=== PATIENT | female | born 1940 | race Caucasian/White ===

== ENCOUNTER 2020-11-19 08:34 | Outpatient (CLI) | payer MEDICARE, SELFPAY ==
--- NOTE | ~2020-11-19 | XR_ITS ---
EXAMINATION: XR shoulder LT min 2V DATE: 11/19/2020 08:52 INDICATION: Left shoulder pain. TECHNIQUE: 4 views of left shoulder were obtained. COMPARISON: None. FINDINGS: Bone alignment is normal. No fracture. There is mild osteoarthritis of glenohumeral joint a nd severe osteoarthritis of acromioclavicular joint. IMPRESSION: 1. Polyarticular osteoarthritis. Reviewed, dictated and finalized at location A. [employer]ORY WORKER
== END 2020-11-19 08:35 | disposition home or self-care (01) ==
PROVIDERS: PCP Family Medicine; Visit Provider Physician Assistant
DX: M25.512 Pain in left shoulder (principal); M19.012 Primary osteoarthritis, left shoulder
CPT/HCPCS: 73030

== ENCOUNTER 2022-07-10 10:04 | Emergency (ER) | payer MEDICARE, SELFPAY ==
[2022-07-10] VITALS (24 sets, daily range): BP systolic 152–177; BP diastolic 63–88; PULSE 18–66; RESP 16–18; TEMP 36.1–36.5; O2SAT 96–100
--- NOTE | ~2022-07-10 | CT_ITS ---
EXAMINATION: CT brain wo con INDICATION: Headache and blurry vision COMPARISON: 10/02/2010 TECHNIQUE: Standard unenhanced head CT. The dose-length product (DLP) was 529.67 mGy-cm. The mA was a djusted according to patient size. Iterative reconstruction technique was employed. FINDINGS: There is no acute intraparenchymal hemorrhage. No evidence of mass lesion. No evidence of a cute infarction. There is mild periventricular and subcortical hypodensity probably related to small vessel ischemic disease. There is mild prominence of the sulci and ventricles related to cerebral atr ophy. Intracranial calcified cerebral atherosclerosis is noted. There are no extra-axial collections. There is no mass effect or midline shift. Changes in the globes are likely from ocular lens surgery. There is mild mucosal thickening of the paranasal sinuses. IMPRESSION: 1. No acute intracranial abnormality. 2. Age related findings. Reviewed, dictated and finalized at location B.
--- NOTE | 2022-07-10 10:38 | PC.NURSE ---
Pt off floor to radiology.
--- NOTE | 2022-07-10 11:13 | ED.HA ---
HPI - Headache General Chief Complaint: Headache Stated Complaint: headache for two weeks Time Seen by Provider: 07/10/22 11:10 History of Present Illness HPI Narrative: Patient is an 82-year-old female with a history of diabetes, hypertension, hyperlipidemia presenting with a headache. Patient states that she has had a constant left-sided headache for the last 2 to 3 weeks. States that she had her eyes checked shortly before the headache began and was very bothered by the bright lights use during the exam. States she thinks that the headache started shortly after that. She has been using Tylenol with temporary improvement in her pain. She endorses mild bilateral vision blurriness but no vision loss or unilateral vision symptoms. She denies neck or back pain. No recent trauma. No numbness or weakness. No speech or gait difficulties. States that sometimes an area over her left parietal region feels tender. She denies fevers, chest pain, shortness of breath, cough, abdominal pain, nausea or vomiting, diarrhea, dysuria, leg swelling. Related Data Home Medications Medication Instructions Recorded Confirmed flash glucose scanning reader 05/29/21 06/16/22 ([employer] Roro 2 [place]) flash glucose sensor (FreeStyle 05/29/21 06/16/22 Roro 2 Sensor kit) dulaglutide 0.75 mg/0.5 mL 0.75 mg subcut WEEKLY 01/08/22 06/16/22 subcutaneous pen injector (Trulicity) insulin aspart U-100 100 unit/mL 6 unit subcut DAILY 01/08/22 06/16/22 (3 mL) subcutaneous pen (Novolog Flexpen U-100 Insulin aspart) insulin detemir U-100 100 unit/mL 7 unit subcut QHS 01/08/22 06/16/22 (3 mL) subcutaneous pen (Levemir FlexTouch U-100 Insulin) Allergies Allergy/AdvReac Type Severity Reaction Status Date / Time No Known Allergies Allergy Unknown Verified 07/10/22 10:48 Review of Systems Review of Systems: All systems reviewed & are unremarkable except as noted in HPI and below PMFSH Past Medical History Medical History Acromioclavicular joint arthritis Carotid artery dissection Claustrophobia Dry eye Glaucoma High cholesterol History of vaginal delivery Hyperlipidemia Hypertension Light-headedness Poison gianna dermatitis 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 Substance use: never Substance use type: does not use Gender identity (if verbalized by the patient): Female Spiritual care concerns: Yes Agree to blood products: Yes Exam Narrative: GENERAL: Well-appearing, well-nourished, and in no acute distress. HEAD: Normocephalic, atraumatic. EYES: PERRLA and EOMI. ENT: Nares clear, no rhinorrhea or epistaxis. Mucous membranes moist. NECK: Supple. CHEST: Clear to auscultation. No respiratory distress. HEART: Regular rate and rhythm. No murmur heard. Normal peripheral pulses. ABDOMEN: Soft, nontender, nondistended, normal active bowel sounds. EXTREMITIES: Normal range of motion. No edema. SKIN: Warm, dry, no rash. NEURO: No focal deficits. Alert and oriented x3. Cranial nerves intact. PSYCH: Normal mood and affect. Course Vital Signs Vital signs: Vital Signs Temperature 97.7 F 07/10/22 10:10 Pulse Rate 18 L 07/10/22 10:10
[2022-07-10] MEDS: KETOROLAC 15 MG/ML VIAL (*BKC) IV PUSH (11:48)
[2022-07-10 11:56] LABS: Basophils Percent Auto 0.2 % (0.2-1.2); Eosinophils Absolute Auto 0.2 K/mm3 (0-0.3); Eosinophils Percent Auto 1.7 % (0-4.4); Hemoglobin 13.3 g/dL (12.0-15.0); Immature Granulocyte Absolute 0.04 K/mm3 (0.00-0.031); Immature Granulocyte Percent A 0.5 % (0-0.5); Lymphocytes Absolute Auto 2.67 K/mm3 (0.9-3.2); Lymphocytes Percent Auto 30.2 % (18.3-44.2); Mean Corpuscular HGB Conc 34.1 g/dl (32-36); Mean Corpuscular Hemoglobin 30.6 pg (26-34); Mean Corpuscular Volume 89.7 fl (80-100); Mean Platelet Volume 10.4 fl (7.4-10.4); Monocytes Absolute Auto 0.8 K/mm3 (0.1-0.6); Monocytes Percent Auto 8.8 % (2.6-8.5); Neutrophils Absolute Auto 5.2 K/mm3 (1.3-6.7); Neutrophils Percent Auto 58.6 % (45.5-73.1); Platelet Count Result 225 k/mm3 (150-375); Red Blood Count 4.35 M/mm3 (4.2-5.4); Red Cell Distribution Width 12.8 % (11.5-14.5); White Blood Count 8.9 K/mm3 (4.5-10.0)
[2022-07-10 12:11] LABS: Alanine Aminotransferase 25 U/L (6-35); Albumin Level 4.6 g/dL (3.5-5.1); Alkaline Phosphatase 52 U/L (38-126); Anion Gap 11 mmol/L (8-16); Aspartate Amino Transferase 25 U/L (14-36); Bilirubin,Total 0.4 mg/dL (0.2-1.3); Blood Urea Nitrogen 19 mg/dL (7-17); Carbon Dioxide 29 mmol/L (22-30); Chloride 95 mmol/L (98-107); Estimated CRCL calculation 47 ml/min; Estimated Glomerular Filt Rate > 60; Glucose 117 mg/dL (65-110); Potassium 4.5 mmol/L (3.4-5.0); Sodium 135 mmol/L (137-145)
== END 2022-07-10 13:11 | disposition home or self-care (01) ==
PROVIDERS: Emergency Provider Emergency Medicine; PCP Family Medicine
DX: R51.9 Headache, unspecified (principal); E11.43 Type 2 diabetes mellitus with diabetic autonomic (poly)neuropathy; E78.00 Pure hypercholesterolemia, unspecified; E78.5 Hyperlipidemia, unspecified; I10 Essential (primary) hypertension; H40.9 Unspecified glaucoma; M19.019 Primary osteoarthritis, unspecified shoulder; Z79.4 Long term (current) use of insulin; Z79.84 Long term (current) use of oral hypoglycemic drugs
CPT/HCPCS: 36415; 70450; 80053; 85025; 96374; 99284; J1885

== ENCOUNTER 2024-11-16 12:47 | Outpatient (CLI) | payer MEDICARE, SELFPAY ==
--- NOTE | ~2024-11-16 | DEXA_ITS ---
Bone Density Report Name: CLARE CARO Age: 84 Sex: Female Ethnicity: White Date of : 1940 Indication: postmenopausal; screening for osteoporosis; height loss; hysterectomy; Referring Provider: Chaya Dowd Study: Bone densitometry was performed. Exam Date: November 16, 2024 Accession number: [id number] Bone Density: Region BMD T-score Z-score Classification AP Spine(L2, L3, L4) 1.118 0.4 3.2 Normal Femoral Neck (Left) 0.674 -1.6 0.9 Osteopenia Total Hip (Left) 0.784 -1.3 1.0 Osteopenia Femoral Neck (Right) 0.544 -2.7 -0.3 Osteoporosis Total Hip (Right) 0.782 -1.3 0.9 Osteopenia Femoral Neck Mean 0.609 -2.2 0.3 Osteopenia Total Hip Mean 0.783 -1.3 0.9 Osteopenia World Health Organization criteria for BMD impression classify patients as: Normal (T-score at or above -1.0), Osteopenia (T-score between -1.0 and -2.5), or Osteoporosis (T-score at or below -2.5). 10-year Fracture Risk: FRAX not reported because: Some T-score for Spine Total or Hip Total or Femoral Neck at or below -2.5 Clinical Information Provided by Patient: Has used the following medications: Vitamin D, Calcium Has the following medical conditions: Hysterectomy Patient maximum height was 64.5 Menopause Age: 56 No regular weight bearing exercise Does not regularly consume dairy products Onset of menses at age 15 Number of children 0 Impression: The patient has osteoporosis, based on the Right Femoral Neck T-score. Discussion: INCREASED RISK OF FRACTURE. BONE DENSITY IS UNDESIRABLY LOW AT ONE OR MORE SKELETAL SITES, CONSISTENT WITH POSTMENOPAUSAL OSTEOPOROSIS. This patient's lowest T-score meets the World Health Organization's (WHO) criteria for osteoporosis at one or more sites (T-score -2.5 or below). In untreated patients, the risk of osteoporotic fracture increases approximately two-fold for each 1.0 SD decrease in T-score. Low bone density is not the only risk factor for fracture; also consider factors such as patient's age, frailty or poor health, risk of falling, risk of injury, previous osteoporotic fracture, family history of osteoporosis, cigarette smoking, low body weight, etc. Not everyone with low bone mineral density has osteoporosis; osteomalacia and other metabolic bone disorders should also be considered. Patients who have osteoporosis should be evaluated for specific diseases and conditions (secondary causes) that may cause or contribute to bone loss. The [place] Association of Clinical Endocrinologists (AACE) and National Osteoporosis Foundation (NOF) recommend pharmacologic intervention for all postmenopausal women whose T-score is in this range. The patient should follow a healthful lifestyle (good nutrition with adequate calcium and vitamin D, and appropriate weight-bearing exercise). Follow-Up: Consider a repeat BMD and Vertebral Fracture Assessment (VFA) exam in 2 years or sooner if medically necessary, to reassess this patient's status. Reported by: RAQUEL on 11/16/2024 1:11:00 PM. Reviewed, dictated and finalized at location A.
--- OUTSIDE RECORDS SUMMARY | 2024-11-17 04:59 | XMS_ITS | Encounter Summary ---
Author Organization [facility] Address [address] [place] [id number] Care Team Providers Care Marketing Summer Intern Name Role Phone Gino Comer Primary Care Provider [phone] Reason for Visit * Reason Comments Diabetes Type 2 Encounter Details Date Type Department Care Team (Latest Contact Info) Description 11/15/2024 9:30 AM BRIQUETTER OPERATOR Office Visit [facility] Diabetes and Endocrinology [address] [place] [phone] [place] [address] [facility] [address], [place] [address] Type 2 diabetes mellitus with hyperglycemia, with long-term current use of insulin (HCC) (Primary Dx); Hypertension associated with type 2 diabetes mellitus (HCC); Mixed diabetic hyperlipidemia associated with type 2 diabetes mellitus (HCC) Social History Tobacco Use Types Packs/Day Years Used Date Smoking Tobacco: Never Smokeless Tobacco: Never PHQ-2 Answer Date Recorded PHQ-2 Total Score (If total score is 3 or more points, staff should administer the PHQ-9) 0 01/06/2022 Comments Unknown Sex and Gender Information Value Date Recorded Sex Assigned at Not on file Legal Sex Female 11:43 PM BRIQUETTER OPERATOR Gender Identity Not on file Sexual Orientation Not on file documented as of this encounter Last Filed Vital Signs Vital Sign Reading Time Taken Comments Blood Pressure 124/80 11/15/2024 9:28 AM BRIQUETTER OPERATOR Pulse 73 11/15/2024 9:28 AM BRIQUETTER OPERATOR Temperature - - Respiratory Rate 16 11/15/2024 9:28 AM BRIQUETTER OPERATOR Oxygen Saturation - - Inhaled Oxygen Concentration - - Weight 67.1 kg (148 lb) 11/15/2024 9:28 AM BRIQUETTER OPERATOR Height 162.6 cm (5' 4.02 ) 11/15/2024 9:28 AM CS T Body Mass Index 25.39 11/15/2024 9:28 AM BRIQUETTER OPERATOR documented in this encounter Patient Instructions * Patient Instructions* Shelley Hogan NP - 11/15/2024 9:30 AM BRIQUETTER OPERATOR Great job! No changes. Current medications: Metformin XR 1000 mg twice daily Trulicity 3 mg weekly (PAP) Tresiba 7 units at bedtime Novolog 6 units before lunch UETTER OPERATOR documented in this encounter Progress Notes * Shelley Hogan NP - 11/15/2024 9:30 AM CST Images from the original note were not included. [facility] Diabetes Follow Up Visit Subjective/Objective Patient ID: Shital Arredondo is a 84 y.o. female who comes in today to our Endocrinology clinicto follow up for DM management. Chief Complaint Diabetes Type 2 HPI Diabetes complications and/or comorbidity include: T2DM dx'd 2001, HTN, HLD Current medications: Metformin XR 1000 mg twice daily Trulicity 3 mg weekly (PAP) Tresiba 7 units at bedtime Novolog 6 units before lunch Dietary habits: 3 meals/day. Very little snacking. Exercise routine: starting walking program again. Golf will begin again in January. More sedentary during winter. Home CBG monitoring results: Freestyle Lianna 2. No hypoglycemia. 07/19/24 Freestyle lianna download comparison: ave BG= 141, 1% very high, 14% high, 85% TIR, 0% low. BG Average: 134 mg/dl with: 1% very high 6% high 93% in target range 0% low. Overnight pattern: flat, in range Postprandial pattern: in range, mild postprandial rise Neuropathy: bilat pedal. Last foot exam: 07/19/24 Statin therapy: Yes. Simvastatin 10mg. Last lipid panel: 12/22/23 LDL=76, RS=778. Nephropathy: On ISSA-I / ARB???s: Yes. Irbesartan 75 mg daily. Last MA: 12/22/23 (18). Last creat/GFR: 01/12/24. GFR=81, CR=0.74 Retinopathy: Date of last eye examination: 03/31/24 NPDR wo DME OD, no DMR OS Dr Fischer ([facility]). Scheduled 03/2025. Wt Readings from Last 3 Encounters: 11/15/24 67.1 kg (148 lb) 07/19/24 67.6 kg (149 lb) 12/23/23 67.6 kg (149 lb) Labs: Last A1c: Recent Labs Lab Units 11/15/24 0931 HEMOGLOBIN A1C POC % 6.7 Component Latest Ref Rng 06/22/2023 12/23/2023 07/19/2024 Hgb A1C, POC 4.0 - 5.6 % 7.1 7.2 7.1 Lab Results Component Value Date ALBCREATRATU <18 12/23/2023 Lipid profile within the last year: Lab Results Component Value Date CHOL 161 12/23/2023 Lab Results Component Value Date TRIG 107 12/23/2023 Lab Results Component Value Date HDL 64 12/23/2023 Lab Results Component Value Date LDLCALC 76 12/23/2023 Vitals: 11/15/24 0928 BP: 124/80 BP Location: Left arm Patient Position: Sitting Pulse: 73 Resp: 16 Weight: 67.1 kg (148 lb) Height: 162.6 cm (5' 4.02 ) Physical Exam Vitals and nursing note reviewed. Constitutional: Appearance: Normal appearance. She is well-developed and normal weight. HENT: Head: Normocephalic. Right Ear: Hearing normal. Left Ear: Hearing normal. Eyes: General: Lids are normal. Gaze aligned appropriately. Neck: Thyroid: No thyromegaly. Trachea: Trachea and phonation normal. No tracheal deviation. Cardiovascular: Rate and Rhythm: Normal rate and regular rhythm. No extrasystoles are present. Heart sounds: Normal heart sounds, S1 normal and S2 normal. No murmur heard. Pulmonary: Effort: Pulmonary effort is normal. Breath sounds: Normal breath sounds and air entry. Skin: General: Skin is warm and dry. Neurological: Mental Status: She is alert and oriented to person, place, and time. Mental status is at baseline. Psychiatric: Mood and Affect: Mood normal. Behavior: Behavior is cooperative. Assessment/Plan Diagnoses and all orders for this visit: Type 2 diabetes mellitus with hyperglycemia, with long-term current use of insulin (HCC) (Primary) Assessment & Plan: Chronic problem, well controlled on current regimen. No hypoglycemic events. A1c 6.7% today. Current medications: Metformin 1000 mg twice daily Trulicity 3 mg weekly (PAP) Levemir 7 units at bedtime Novolog 6 units before lunch UTD on labs. UTD on DM eye exam (03/31/24 NPDR wo DME OD, no DMR OS Dr Fischer ([facility]) Discussed with Shital Arredondo: Strive for regular exercise (30min most days) and diet (get at least 4-5 servings of fruit and veggies daily, avoid processed foods, increase lean protein intake and decrease carb portions as well asfruit juices, regular soda & desserts). Watch carbs and simple sugars. Check the blood sugar: Freestyle lianna 2. Check the feet daily for skin breakdown and infection. Orders: - POCT hemoglobin A1c - POCT glucose Hypertension associated with type 2 diabetes mellitus (HCC) Assessment & Plan: Chronic problem. Well controlled on current irbesartan 75mg daily. Mixed diabetic hyperlipidemia associated with type 2 diabetes mellitus (HCC) Assessment & Plan: Chronic problem, well controlled on current Simvastatin 10mg. Last lipid panel: 12/22/23 LDL=76, RK=043. Shelley Hogan NP UETTER OPERATOR documented in this encounter Miscellaneous Notes * Assessment & Plan Note - Shelley Hogan NP - 11/15/2024 10:05 AM BRIQUETTER OPERATOR Associated Problem(s): Type 2 diabetes mellitus with hyperglycemia, with long- term current use of insulin (HCC) Chronic problem, well controlled on current regimen. No hypoglycemic events. A1c 6.7% today. Current medications: Metformin 1000 mg twice daily Trulicity 3 mg weekly (PAP) Levemir 7 units at bedtime Novolog 6 units before lunch UTD on labs. UTD on DM eye exam (03/31/24 NPDR wo DME OD, no DMR OS Dr Fischer ([facility]) Discussed with Shital Arredondo: Strive for regular exercise (30min most days) and diet (get at least 4-5 servings of fruit and veggies daily, avoid processed foods, increase lean protein intake and decrease carb portions as well asfruit juices, regular soda & desserts). Watch carbs and simple sugars. Check the blood sugar: Freestyle lianna 2. Check the feet daily for skin breakdown and infection. UETTER OPERATOR * Assessment & Plan Note - Shelley Hogan NP - 11/15/2024 10:04 AM BRIQUETTER OPERATOR Associated Problem(s): Mixed diabetic hyperlipidemia associated with type 2 diabetes mellitus (HCC) Chronic problem, well controlled on current Simvastatin 10mg. Last lipid panel: 12/22/23 LDL=76, AT=882. UETTER OPERATOR * Assessment & Plan Note - Shelley Hogan NP - 11/15/2024 10:04 AM BRIQUETTER OPERATOR Associated Problem(s): Hypertension associated with type 2 diabetes mellitus (HCC) Chronic problem. Well controlled on current irbesartan 75mg daily. UETTER OPERATOR documented in this encounter Plan of Treatment Not on file documented as of this encounter Procedures Procedure Name Priority Date/Time Associated Diagnosis Comments POCT HEMOGLOBIN A1C Routine 11/15/2024 9 :31 AM BRIQUETTER OPERATOR Type 2 diabetes mellitus with hyperglycemia, with long-term current use of insulin ([facility]) POCT GLUCOSE Routine 11/15/2024 9:31 AM BRIQUETTER OPERATOR Type 2 diabetes mellitus with hyperglycemia, with long-term current use of insulin ([facility]) documented in this encounter Results * (ABNORMAL) POCT glucose (11/15/2024 9:31 AM BRIQUETTER OPERATOR) Glucose Blood, POC 203 mg/dL Blood 11/15/2024 9:31 AM BRIQUETTER OPERATOR us Shelley Hogan EDGE GLUER POINT OF CARE TEST ORDERA BLES Final Result * (ABNORMAL) POCT hemoglobin A1c (11/15/2024 9:31 AM BRIQUETTER OPERATOR) Hemoglobin A1C, POC 6.7 4.0 - 5.6 % Blood 11/15/2024 9:31 AM BRIQUETTER OPERATOR us Shelley Hogan EDGE GLUER POINT OF CARE TEST ORDERA BLES Final Result documented in this encounter Visit Diagnoses Diagnosis Type 2 diabetes mellitus with hyperglycemia, with long-term current use of insulin (HCC)- Primary Hypertension associated with type 2 diabetes mellitus (HCC) Mixed diabetic hyperlipidemia associated with type 2 diabetes mellitus (HCC) documented in this encounter Care Teams Marketing Summer Intern Relationship Specialty Start Date End Date Gino Comer PA [address] [facility] [address] [facility] [address] [place] [address] PCP - General Physician Ciaio Counter Molder 02/25/21 documented as of this encounter
--- OUTSIDE RECORDS SUMMARY | 2024-11-17 04:59 | XMS_ITS | Referral Summary ---
Author Organization [facility] Physician [facility] Building [address] [place] [id number] Care Team Providers Care Chief Of Production Name Role Phone Gino Comer Primary Care Provider [phone] Encounters Date Type Department Care Team Description 11/15/2024 Telephone [facility] Medical [facility] Diabetes and Endocrinology [address] [place] [phone] Shelley Hogan NP Med Management (Justina PAP - Trulicity) 11/15/2024 9:30 AM RAIL PROJECT ENGINEER Office Visit [facility] Diabetes and Endocrinology [address] [place] [phone] Shelley Hogan NP Type 2 diabetes mellitus with hyperglycemia, with long-term current use of insulin (HCC) (Primary Dx); Hypertension associated with type 2 diabetes mellitus (HCC); Mixed diabetic hyperlipidemia associated with type 2 diabetes mellitus (HCC) from Last 3 Months Allergies No known active allergies Medications metFORMIN XR (GLUCOPHAGE XR) 500 mg 24 hr tablet Take 2 tablets (1,000 mg total) by mouth 2 (two) times a day 1 Active simvastatin (ZOCOR) 10 mg tablet 1 Active OneTouch Verio test strips strip TEST BLOOD SUGAR TWICE DAILY AND NEEDED UP TO A MAX OF 4 TIMES DAILY. 1 Active clonazePAM (KlonoPIN) 0.5 mg tablet Take 1 tablet (0.5 mg total) by mouth daily 1 Active flash glucose sensor (FreeStyle Lianna 2 Sensor) kitIndications: Type 2 diabetes mellitus with hyperglycemia, with long-term current use of insulin (HCC) Change every 7 days 2 kit 2 1 Active flash glucose scanning reader (FreeStyle Lianna 2 [place]) misc USED TO CHECK BG 4 TIMES A DAY 1 each 1 Active irbesartan (AVAPRO) 75 mg tablet 2 Active blood-glucose meter kitIndications: Type 2 diabetes mellitus with hyperglycemia, with long-term current use of insulin (HCC) Use daily or as directed for monitoring of diabetes 1 kit 3 Active BD Ultra-Fine Short Pen Needle 31 gauge x 5/16 needle USE TO TAKE INSULIN 4 X DAY 200 each 3 3 Active insulin degludec (TRESIBA) 100 unit/mL (3 mL) pen for injection Inject 0.07 mL (7 Units total) under the skin nightly 15 mL 11 4 Active insulin aspart (NovoLOG) 100 unit/mL (3 mL) pen for injection INJECT 6 units with lunch only every day 15 mL 3 4 Active aspirin 81 mg enteric coated tablet Take 1 tablet (81 mg total) by mouth daily Active dulaglutide (Trulicity) 3 mg/0.5 mL pen injectorIndicat ions:type 2 diabetes mellitus Inject 0.5 mL (3 mg total) under the skin once a week 6 mL 3 4 07/19/20 Active Active Problems Problem Noted Date Diagnosed Date BMI 25.0-25.9,adult 12/08/2022 Assessment & Plan (12/08/2022 9:18 AM RAIL PROJECT ENGINEER): BMI is acceptable for this patient. Discussed healthy diet and importance of regular physical activity (20- 30min/day, 150min/wk). Hypertension associated with type 2 diabetes jayson litus 06/10/2022 Assessment & Plan (11/15/2024 10:04 AM RAIL PROJECT ENGINEER): Chronic problem. Well controlled on current irbesartan 75mg daily. Assessment & Plan (07/19/2024 12:02 PM CDT): Chronic problem. Well controlled on current irbesartan 75mg daily. Assessment & Plan (12/23/2023 9:40 AM RAIL PROJECT ENGINEER): Chronic, well controlled Continue irbesartan Update GFR and MA Assessment & Plan (06/22/2023 10:26 AM CDT): Chronic, well-controlled Continue current regimen with irbesartan Assessment & Plan (12/07/2022 2:36 PM RAIL PROJECT ENGINEER): Chronic problem. Well controlled on current irbesartan 150mg daily. No changes at this time. Will update labs today. Verified phone #/address to contact re: results. Assessment & Plan (06/11/2022 2:24 PM CDT): Controlled on current medications, no changes. Mixed diabetic hyperlipidemi a associated with type 2 diabetes mellitus 09/30/2021 Assessment & Plan (11/15/2024 10:04 AM RAIL PROJECT ENGINEER): Chronic problem, well controlled on current Simvastatin 10mg. Last lipid panel: 12/22/23 LDL=76, BC=370. Assessment & Plan (07/19/2024 12:01 PM CDT): Chronic problem, well controlled on current Simvastatin 10mg. Last lipid panel: 12/22/23 LDL=76, JC=603. Assessment & Plan (12/23/2023 9:39 AM RAIL PROJECT ENGINEER): Chronic, well controlled Continue statin therapy Update LP Assessment & Plan (06/22/2023 10:25 AM CDT): Chronic, well-controlled Continue statin therapy with simvastatin Assessment & Plan (12/07/2022 2:37 PM RAIL PROJECT ENGINEER): Chronic problem, well controlled on current simvastatin 10mg daily. Last lipid panel: 09/30/21 LDL=53, OO=617. Will update labs today. Verified phone #/address to contact re: results. Assessment & Plan (06/11/2022 2:24 PM CDT): Chronic problem. On statin therapy, no changes. Assessment & Plan (01/06/2022 2:50 PM CDT): Chronic, well controlled Low fat Low cholesterol diet Exercise Continue statin therapy Assessment & Plan (09/30/2021 4:18 PM RAIL PROJECT ENGINEER): LDL cholesterol goal under 80 Lipids checked today Continue simvastatin Type 2 diabetes mellitus wit h hyperglycemia, with long-term current use of insulin 04/03/2021 Assessment & Plan (11/15/2024 10:05 AM RAIL PROJECT ENGINEER): Chronic problem, well controlled on current regimen. No hypoglycemic events. A1c 6.7% today. Current medications: Metformin 1000 mg twice daily Trulicity 3 mg weekly (PAP) Levemir 7 units at bedtime Novolog 6 units before lunch UTD on labs. UTD on DM eye exam (03/31/24 NPDR wo DME OD, no DMR OS Dr Fischer ([facility]) Discussed with Shital Arredondo: Strive for regular exercise (30min most days) and diet (get at least 4-5 servings of fruit and veggies daily, avoid processed foods, increase lean protein intake and decrease carb portions as well as fruit juices, regular soda & desserts). Watch carbs and simple sugars. Check the blood sugar: Freestyle lianna 2. Check the feet daily for skin breakdown and infection. Assessment & Plan (07/19/2024 12:47 PM CDT): Chronic problem, well controlled on current regimen. No hypoglycemic events. A1c 7.1% today. Will increase Trulicity from 1.5 to 3mg weekly. Aware to watch Tresiba & lunch time Novolog (may need to decrease/stop if starting to go persistently low). Current medications: Metformin 1000 mg twice daily Trulicity 3 mg weekly (PAP) Levemir 7 units at bedtime Novolog 6 units before lunch UTD on labs. DM eye exam 09/2023 at [facility] in [place]. Scheduled again 09/2024. Discussed with Shital Arredondo: Strive for regular exercise (30min most days) and diet (get at least 4-5 servings of fruit and veggies daily, avoid processed foods, increase lean protein intake and decrease carb portions as well as fruit juices, regular soda & desserts). Watch carbs and simple sugars. Check the blood sugar: Freestyle lianna 2. Check the feet daily for skin breakdown and infection. Assessment & Plan (12/23/2023 9:39 AM RAIL PROJECT ENGINEER): Chronic, well controlled Continue current regimen. Switched from Levemir to Tresiba, because of formulary change Assessment & Plan (06/22/2023 10:25 AM CDT): Chronic, well-controlled Continue current insulin regimen with Levemir and Humalog, also metformin and Trulicity Prevention and treatment of hypoglycemia was also discussed Need for eye exam was explained Assessment & Plan (12/08/2022 9:36 AM RAIL PROJECT ENGINEER): Chronic problem, well controlled on current regimen. No hypoglycemic events. No changes at this time: Current medications: Metformin 1000 mg twice daily Trulicity 1.5 mg weekly Levemir 7 units at bedtime Novolog 6 units before lunch, 4 units before dinner. Will update labs today. Verified phone #/address to contact re: results. Assessment & Plan (06/11/2022 2:31 PM CDT): Chronic stable problem w/o hypoglycemia. No medication changes. Update CMP. Assessment & Plan (01/06/2022 2:50 PM CDT): Hba1c was Lab Results Component Value Date HGBA1C 6.8 01/06/2022 today, indicating adequate DM control with risk of hypoglycemia Goal Hba1c and blood glucose explained Diet and exercise were advised Prevention and treatment of hyypoglcyemia were discussed with the patient Blood glucose monitoring : Continue with freestyle Lianna C GMS Adjustment to medications: Continue with Levemir 7 units day Lower NovoLog to be taking only with lunch, 6 units Increase Trulicity to 1.5 mg weekly Continue metformin a 1000 mg BD Assessment & Plan (09/30/2021 4:15 PM RAIL PROJECT ENGINEER): Hba1c was Lab Results Component Value Date HGBA1C 6.8 09/30/2021 today, indicating better DM control, risk of hypoglycemia Goal Hba1c and blood glucose explained Diet and exercise , discussed Prevention and treatment of hyypoglcyemia discussed. Blood glucose monitoring : Continue C GMS with freestyle Ilanna Dose of insulin adjusted : Lower Levemir to 8 units at bedtime Stay on Novolog, 5 units before meals For sugars over 180, take 6 units For sugars over 220, take 8 units Continue with Metformin and Trulicity. Assessment & Plan (05/22/2021 1:34 PM CDT): Hba1c was Lab Results Component Value Date HGBA1C 7.9 (A) 05/22/2021 today, indicating suboptimal DM control Goal blood sugars in the 120-150 range , with Hb1c under 7.0 % was explained 1800 calorie, consistent carb diet recommended. No more than 30-45 grams of carbs per meal recommended, as well as avoiding high concentrated sweet drinks . 25-45 min daily exercise, combining both aerobic and resistance exercise recommended. The need to monitor blood glucose before meals and bedtime was discussed. Prevention and treatment of hyypoglcyemia discussed. Bring your sugar meter and /or a log book or log sheet to every office visit. Continue with Levemir, 15 units at bedtime. Stay on Novolog 4-6 units before meals Stay on Metformin and Trulicity Assessment & Plan (04/03/2021 4:36 PM CDT): Hba1c was Lab Results Component Value Date HGBA1C 9.4 04/03/2021 today, indicating poor DM control Goal blood sugars in the 120-150 range , with Hb1c under 7.0 % was explained 1800 calorie, consistent carb diet recommended. No more than 30-45 grams of carbs per meal recommended, as well as avoiding high concentrated sweet drinks . 25-45 min daily exercise, combining both aerobic and resistance exercise recommended. The need to monitor blood glucose before meals and bedtime was discussed. Prevention and treatment of hyypoglcyemia discussed. Start BG monitoring with a CGM Take Levemir, 35 units at bedtime Take Humalog, 6 units before meals. For sugars over 200, take 8 units For sugars over 250, take 10 units For sugars over 300, take 12 units For sugars over 350, take 14 units Stop Glimepiride Stay on Metformin , 1000 mg with breakfast and dinner Start Trulicity, 0.75 mg once a week Sleep disorder 04/03/2021 Assessment & Plan (04/03/2021 4:37 PM CDT): Will try Ambien Immunizations Name Administration Dates Next Due Influenza, Quad, Adjuvantated, Intramuscular 05/2020 Influenza, Quadrivalent, Isabelle l Culture-based MDCK, Antibiotic Free, Intramuscular 07/22/2018 Influenza, Trivalent, High D ose, Split, Preservative Free, Intramuscular 08/23/2015 Pfizer SARS-CoV-2 Monovalent Vaccination (12+ Yrs) PURPLE 01/09/2021,12/19/2020 Pneumococcal Conjugate PCV 13 01/18/2017 Pneumococcal Polysaccharide PPV23 10/25/2005 TD Preservative Free 10/10/2009,10/25/1998 ZOSTER Recombinant 11/04/2020,08/08/2020 Social History Tobacco Use Types Packs/Day Years Used Date Smoking Tobacco: Never Smokeless Tobacco: Never PHQ-2 Answer Date Recorded PHQ-2 Total Score (If total score is 3 or more points, staff should administer the PHQ-9) 0 01/06/2022 Comments Unknown Sex and Gender Information Value Date Recorded Sex Assigned at Not on file Legal Sex Female 11:43 PM RAIL PROJECT ENGINEER Gender Identity Not on file Sexual Orientation Not on file Last Filed Vital Signs Vital Sign Reading Time Taken Comments Blood Pressure 124/80 11/15/2024 9:28 AM RAIL PROJECT ENGINEER Pulse 73 11/15/2024 9:28 AM RAIL PROJECT ENGINEER Temperature - - Respiratory Rate 16 11/15/2024 9:28 AM RAIL PROJECT ENGINEER Oxygen Saturation - - Inhaled Oxygen Concentration - - Weight 67.1 kg (148 lb) 11/15/2024 9:28 AM RAIL PROJECT ENGINEER Height 162.6 cm (5' 4.02 ) 11/15/2024 9:28 AM CS T Body Mass Index 25.39 11/15/2024 9:28 AM RAIL PROJECT ENGINEER Plan of Treatment Not on file Procedures Procedure Name Priority Date/Time Associated Diagnosis Comments POCT GLUCOSE Routine 11/15/2024 9:31 AM RAIL PROJECT ENGINEER Type 2 diabetes mellitus with hyperglycemia, with long-term current use of insulin (HCC) POCT HEMOGLOBIN A1C Routine 11/15/2024 9 :31 AM RAIL PROJECT ENGINEER Type 2 diabetes mellitus with hyperglycemia, with long-term current use of insulin ([facility]) DIABETES EYE EXAM Routine 03/31/2024 8:45 AM CDT EGFR Routine 01/12/2024 10:16 AM CDT Type 2 diabetes mellitus with hyperglycemia, with long-term current use of insulin ([facility]) (HCC) ALBUMIN CREATININE RATIO, URINE Routine 12/23/2023 2:33 PM RAIL PROJECT ENGINEER Hypertension associated with type 2 diabetes mellitus (HCC) LIPID PANEL Routine 12/23/2023 2:27 PM RAIL PROJECT ENGINEER Mixed diabetic hyperlipidemia associated with type 2 diabetes mellitus ([facility]) from Last 3 Months or Most Recently Relevant to Health Maintenance Results * (ABNORMAL) POCT hemoglobin A1c (11/15/2024 9:31 AM RAIL PROJECT ENGINEER) Hemoglobin A1C, POC 6.7 4.0 - 5.6 % Blood 11/15/2024 9:31 AM RAIL PROJECT ENGINEER us Shelley Hogan NP POINT OF CARE TEST ORDERA BLES Final Result * (ABNORMAL) POCT glucose (11/15/2024 9:31 AM RAIL PROJECT ENGINEER) Glucose Blood, POC 203 mg/dL Blood 11/15/2024 9:31 AM RAIL PROJECT ENGINEER us Shelley Hogan NP POINT OF CARE TEST ORDERA BLES Final Result * (ABNORMAL) DIABETES EYE EXAM (03/31/2024 8:45 AM CDT) us Historical Provider HEALTH MAINTENANCE Edited Result - Final * eGFR (01/12/2024 10:16 AM CDT) eGFR 81 mL/min/1. 73 m2 Comment: Interpretive Data Reference Interval Normal ?>/= 90 mL/min/1.73m2 Mildly decreased* ? 60 - 89 mL/min/1.73m2 Mildly to moderately decreased ?45 - 59 mL/min/1.73m2 Moderately to severely decreased ??30 - 44 mL/min/1.73m2 Severely decreased ?15 - 29 mL/min/1.73m2 Kidney Failure ?< 15 ??mL/min/1.73m2 *Relative to young adult level Estimated glomerular filtration rate is determined by the 2020 CKD-EPI equation recommended by the National Kidney Foundation (A Unifying Approach to GFR Estimation: Recommendations of the NKF-ASK Task Force on Reassessing the Inclusion of Race in Diagnosing Kidney Disease, JASN 2020). The CKD-EPI equation should not be used for patients with unstable renal function and has not been validated in children and those over 70. Current interpretive data was last reviewed 2021. Blood 01/12/2024 10:1 6 AM CDT 01/12/2024 6:01 PM CDT us Horace Mullen MD LAB BLOOD ORDERABLES Final Resul t [facility] [id number] Department of Laboratories [place], [place] [id number] * Albumin Creatinine Ratio, Urine (12/23/2023 2:33 PM RAIL PROJECT ENGINEER) Albumin Ur <12.0 mg/L [facility] Comment: Interpretive Data No reference range established. Current interpretive data was last revised 2019. Creatinine Ur 64.9 mg/dL [facility] Comment: Interpretive Data No reference range established. Current interpretive data was last revised 2019. Albumin Creatinine Ratio, Ur <18 1 - 29 mg/g [facility] Urine 12/23/2023 2:33 PM RAIL PROJECT ENGINEER 12/23/2023 2:33 PM RAIL PROJECT ENGINEER us Horace Mullen MD LAB URINE ORDERABLES Final Resul t [facility] [id number] Department [place] [address] * Lipid panel (12/23/2023 2:27 PM RAIL PROJECT ENGINEER) Cholesterol 161 30 - 199 mg/dL [facility] Comment: Interpretive Data Ages < or = 19 years ??Acceptable: ? <170 mg/dL ??Borderline high: ??170-199 mg/dL ??High: ? >or= 200 mg/dL Ages > or = 20 years ??Desirable: ?<200 mg/dL ??Borderline high: ??200-239 mg/dL ??High: ? >or= 240 mg/dL Literature References: 1. Expert Panel on Integrated Guidelines for Cardiovascular Health and Risk Reduction in Children and Adolescents. Pediatrics 2011;128:S213 2. NCEP Expert Panel. Circulation 2004;110:227 Current Interpretive Data was last revised on 2018. Triglycerides 107 <=149 mg/dL [facility] Comment: Interpretive Data Ages < or = 9 years ??Acceptable: ? <75 mg/dL ??Borderline high: ??75-99 mg/dL ??High: ? >or= 100 mg/dL Ages 10 to 20 years ??Acceptable: ? <90 mg/dL ??Borderline high: ??90-129 mg/dL ??High: ? >or= 130 mg/dL Ages > or = 20 years ??Desirable: ?<150 mg/dL ??Borderline high: ??150-199 mg/dL ??High: ? 200-499 mg/dL ?Very high: ?? >or= 499 mg/dL Literature References: 1. Expert Panel on Integrated Guidelines for Cardiovascular Health and Risk Reduction in Children and Adolescents. Pediatrics 2011;128:S213 2. NCEP Expert Panel. Circulation 2004;110:227 Current Interpretive Data was last revised on 2018. HDL 64 >=40 mg/dL [facility] Comment: Interpretive Data Ages < or = 19 years ??Acceptable: ? >45 mg/dL ??Borderline low: ?? 40-45 mg/dL ??Low: ? <40 mg/dL Ages > or = 20 years ??Desirable: ?>or= 60 mg/dL ??Low: ? <40 mg/dL Literature References: 1. Expert Panel on Integrated Guidelines for Cardiovascular Health and Risk Reduction in Children and Adolescents. Pediatrics 2011;128:S213 2. NCEP Expert Panel. Circulation 2004;110:227 Current Interpretive Data was last revised on 2018. LDL, calculated 76 <=129 mg/dL [facility] Comment: Interpretive Data Ages < or = 19 years ??Acceptable: ? <110 mg/dL ??Borderline high: ??110-129 mg/dL ??High: ?>or= 130 mg/dL Ages > or = 20 years ??Optimal: ? <100 mg/dL ??Near optimal: ?100-129 mg/dL ??Borderline high: ?? 130-159 mg/dL ??High: ?>160 mg/dL Literature References: 1. Expert Panel on Integrated Guidelines for Cardiovascular Health and Risk Reduction in Children and Adolescents. Pediatrics 2011;128:S213 2. NCEP Expert Panel. Circulation 2004;110:227 Current Interpretive Data was last revised on 2018. Non-HDL Cholesterol 97 mg/dL [facility] Comment: Interpretive Data Ages < or = 19 years ??Acceptable: ?<120 mg/dL ??Borderline high: ??120-144 mg/dL ??High: ?>145 mg/dL Ages > or = 20 years ??When triglycerides are >200 mg/dL, Non-HDL cholesterol is a secondary target of ? therapy with treatment goals that are 30 mg/dL greater than the LDL cholesterol target. ? Literature References: 1. Expert Panel on Integrated Guidelines for Cardiovascular Health and Risk Reduction in Children and Adolescents. Pediatrics 2011;128:S213 2. NCEP Expert Panel. Circulation 2004;110:227 Current Interpretive Data was last revised on 2018. Chol/HDL ratio 3 [facility] Blood 12/23/2023 2:27 PM RAIL PROJECT ENGINEER 12/23/2023 2:27 PM RAIL PROJECT ENGINEER us Horace Mullen MD LAB BLOOD ORDERABLES Final Resul t [facility] [id number] Department [place] [address] from Last 3 Months or Most Recently Relevant to Health Maintenance Insurance [facility] MEDICARE GOLD T MEDICARE GOLD Care Teams Chief Of Production Relationship Specialty Start Date End Date Gino Comer PA [address] [facility] [address] [place] [address] PCP - General Physician Meat Wrapper 02/25/21
--- OUTSIDE RECORDS SUMMARY | 2024-11-17 04:59 | XMS_ITS | Encounter Summary ---
Author Organization [facility] Healthcare Address [address] [place] [id number] Care Team Providers Care Natural Resource Technician Name Role Phone Gino Comer Primary Care Provider [phone] Reason for Visit * Reason Onset Date Comments Med Management 11/15/2024 Justina PAP - Trul icity Encounter Details Date Type Department Care Team (Late st Contact Info) Description 11/15/2024 Telephone [facility] Medical Group Diabetes and Endocrinology [address] [place] [phone] Shelley Hogan, CARTON STAMPER [id number] [facility][1] [address], [place] [id number] Med Management (Justina PAP - Trulicity) Social History Tobacco Use Types Packs/Day Years Used Date Smoking Tobacco: Never Smokeless Tobacco: Never PHQ-2 Answer Date Recorded PHQ-2 Total Score (If total score is 3 or more points, staff should administer the PHQ-9) 0 01/06/2022 Comments Unknown Sex and Gender Information Value Date Recorded Sex Assigned at Not on file Legal Sex Female 11:43 PM MARKETING SECRETARY Gender Identity Not on file Sexual Orientation Not on file documented as of this encounter Miscellaneous Notes * Telephone Encounter - Dania Otto MA - 11/15/2024 12:19 PM CST Application singed and held at my desk until proof of income is received. ETING SECRETARY * Telephone Encounter - Dania Otto MA - 11/15/2024 10:47 AM CST Pt was seen in the office today by Shelley and completed her application for re- enrollment for pt [facility] [employer] [facility] Pt stated she will drop off her proof of income once she gets her taxes filed. Completed application placed on Shelley's desk for signature. ETING SECRETARY documented in this encounter Plan of Treatment Not on file documented as of this encounter Visit Diagnoses Not on filedocumented in this encounter Care Teams Natural Resource Technician Relationship Specialty Start Date End Date Gino Comer PA [address] [address] PCP - General Physician Snow Shoveler 02/25/21 documented as of this encounter
--- OUTSIDE RECORDS SUMMARY | 2024-11-17 04:59 | XMS_ITS | Clinical Summary ---
Author Organization [facility] Physician Office Building [address] [place] [phone] Care Team Providers Care Flight Operations Engineer Name Role Phone Gino Comer Primary Care Provider [phone] Allergies No known active allergies Medications metFORMIN [...] flash glucose scanning reader (FreeStyle Lianna 2 [place]) misc USED TO CHECK BG 4 TIMES [...] a week 6 mL 3 4 07/19/20 25 Active Active Problems Problem Noted Date Diagnosed Date BMI 25.0-25.9,adult 12/08/2022 Assessment & Plan (12/08/2022 9:18 AM GRADES 9 THRU 12 VISITING TEACHER): BMI is acceptable for this patient. Discussed healthy diet and importance of regular physical activity (20- 30min/day, 150min/wk). Hypertension associated with type 2 diabetes jayson litus 06/10/2022 Assessment & Plan (11/15/2024 10:04 AM GRADES 9 THRU 12 VISITING TEACHER): Chronic problem. Well controlled on current irbesartan 75mg daily. Assessment & Plan (07/19/2024 12:02 PM CDT): Chronic problem. Well controlled on current irbesartan 75mg daily. Assessment & Plan (12/23/2023 9:40 AM GRADES 9 THRU 12 VISITING TEACHER): Chronic, well controlled Continue irbesartan Update GFR and MA Assessment & Plan (06/22/2023 10:26 AM CDT): Chronic, well-controlled Continue current regimen with irbesartan Assessment & Plan (12/07/2022 2:36 PM GRADES 9 THRU 12 VISITING TEACHER): Chronic problem. Well controlled on current irbesartan 150mg daily. No changes at this time. Will update labs today. Verified phone #/address to contact re: results. Assessment & Plan (06/11/2022 2:24 PM CDT): Controlled on current medications, no changes. Mixed diabetic hyperlipidemi a associated with type 2 diabetes mellitus 09/30/2021 Assessment & Plan (11/15/2024 10:04 AM GRADES 9 THRU 12 VISITING TEACHER): Chronic problem, well controlled on current Simvastatin 10mg. Last lipid panel: 12/22/23 LDL=76, BP=069. Assessment & Plan (07/19/2024 12:01 PM CDT): Chronic problem, well controlled on current Simvastatin 10mg. Last lipid panel: 12/22/23 LDL=76, LT=179. Assessment & Plan (12/23/2023 9:39 AM GRADES 9 THRU 12 VISITING TEACHER): Chronic, well controlled Continue statin therapy Update LP Assessment & Plan (06/22/2023 10:25 AM CDT): Chronic, well-controlled Continue statin therapy with simvastatin Assessment & Plan (12/07/2022 2:37 PM GRADES 9 THRU 12 VISITING TEACHER): Chronic problem, well controlled on current simvastatin 10mg daily. Last lipid panel: 09/30/21 LDL=53, AY=871. Will update labs today. Verified phone #/address to contact re: results. Assessment & Plan (06/11/2022 2:24 PM CDT): Chronic problem. On statin therapy, no changes. Assessment & Plan (01/06/2022 2:50 PM CDT): Chronic, well controlled Low fat Low cholesterol diet Exercise Continue statin therapy Assessment & Plan (09/30/2021 4:18 PM GRADES 9 THRU 12 VISITING TEACHER): LDL cholesterol goal under 80 Lipids checked today Continue simvastatin Type 2 diabetes mellitus wit h hyperglycemia, with long-term current use of insulin 04/03/2021 Assessment & Plan (11/15/2024 10:05 AM GRADES 9 THRU 12 VISITING TEACHER): Chronic problem, well controlled on current regimen. No hypoglycemic events. A1c 6.7% today. Current medications: Metformin 1000 mg twice daily Trulicity 3 mg weekly (PAP) Levemir 7 units at bedtime Novolog 6 units before lunch UTD on labs. UTD on DM eye exam (03/31/24 NPDR wo DME OD, no DMR OS Dr Fischer ([facility]) Discussed with Shital Arredondo: Strive [...] on labs. DM eye exam 09/2023 at [facility] in [place]. Scheduled again 09/2024. Discussed with [...] infection. Assessment & Plan (12/23/2023 9:39 AM GRADES 9 THRU 12 VISITING TEACHER): Chronic, well controlled Continue current regimen. Switched from Levemir to Tresiba, because of formulary change Assessment & Plan (06/22/2023 10:25 AM CDT): Chronic, well-controlled Continue current insulin regimen with Levemir and Humalog, also metformin and Trulicity Prevention and treatment of hypoglycemia was also discussed Need for eye exam was explained Assessment & Plan (12/08/2022 9:36 AM GRADES 9 THRU 12 VISITING TEACHER): Chronic problem, well controlled on current regimen. [...] BD Assessment & Plan (09/30/2021 4:15 PM GRADES 9 THRU 12 VISITING TEACHER): Hba1c was Lab Results Component Value Date HGBA1C 6.8 09/30/2021 today, indicating better DM control, risk of hypoglycemia Goal Hba1c and blood glucose explained Diet and exercise , discussed Prevention and treatment of hyypoglcyemia discussed. Blood glucose monitoring : Continue C GMS with freestyle Lianna Dose of insulin adjusted : Lower Levemir [...] Plan (04/03/2021 4:37 PM CDT): Will try Kristinaien Encounters Date Type Department Care Team Description 11/15/2024 9:30 AM GRADES 9 THRU 12 VISITING TEACHER Office Visit [facility] Diabetes [facility] Endocr[facility]ology [address] [place] [phone] Shelley Hogan, EZEKIEL Type 2 diabetes mellitus with hyperglycemia, with long-term current use of insulin (HCC) (Primary Dx); Hypertension associated with type 2 diabetes mellitus (HCC); Mixed diabetic hyperlipidemia associated with type 2 diabetes mellitus (HCC) 11/15/2024 Telephone [facility] Diabetes [facility] Endocr[facility]ology [address] [place] [phone] Shelley Hogan NP Med Management (Justina Sherman) from Last 3 Months Immunizations Name Administration Dates Next Due Influenza, Quad, Adjuvantated, Intramuscular 05/2020 Influenza, Quadrivalent, Isabelle l Culture-based MDCK, Antibiotic Free, Intramuscular 07/22/2018 Influenza, Trivalent, High D ose, Split, Preservative Free, Intramuscular 08/23/2015 Pfizer SARS-CoV-2 Monovalent Vaccination (12+ Yrs) PURPLE 01/09/2021,12/19/2020 Pneumococcal Conjugate PCV 13 01/18/2017 Pneumococcal Polysaccharide PPV23 10/25/2005 TD Preservative Free 10/10/2009,10/25/1998 ZOSTER Recombinant 11/04/2020,08/08/2020 Surgical History Surgery Date Site/Laterality Comments HEART SURGERY BLADDER SURGERY Medical History Medical History Date Comments Anxiety Cataracts, bilateral Depression Type 2 diabetes mellitus (HCC) Fatigue Hypertension High cholesterol Numbness and tingling of both feet Pulled muscle right hip/upper thigh Family History Medical History Relation Name Comments Cancer Father Hypertension Father Diabetes Mother Hypertension Mother Cancer Sister Diabetes Sister Hypertension Sister Relation Name Status Comments Father Mother Sister Social History Tobacco Use Types Packs/Day Years Used Date Smoking Tobacco: Never Smokeless Tobacco: Never PHQ-2 Answer Date Recorded PHQ-2 Total Score (If total score is 3 or more points, staff should administer the PHQ-9) 0 01/06/2022 Comments Unknown Sex and Gender Information Value Date Recorded Sex Assigned at Not on file Legal Sex Female 11:43 PM GRADES 9 THRU 12 VISITING TEACHER Gender Identity Not on file Sexual Orientation Not on file Obstetrics History Last Filed Vital Signs Vital Sign Reading Time Taken Comments Blood Pressure 124/80 11/15/2024 9:28 AM GRADES 9 THRU 12 VISITING TEACHER Pulse 73 11/15/2024 9:28 AM GRADES 9 THRU 12 VISITING TEACHER Temperature - - Respiratory Rate 16 11/15/2024 9:28 AM GRADES 9 THRU 12 VISITING TEACHER Oxygen Saturation - - Inhaled Oxygen Concentration - - Weight 67.1 kg (148 lb) 11/15/2024 9:28 AM GRADES 9 THRU 12 VISITING TEACHER Height 162.6 cm (5' 4.02 ) 11/15/2024 9:28 AM CS T Body Mass Index 25.39 11/15/2024 9:28 AM GRADES 9 THRU 12 VISITING TEACHER Plan of Treatment Health Maintenance Due Date Last Done Comments Fall Risk Assessment 1941 Osteoporosis Screening-Bone Density Scan 1941 Hepatitis B Screening 1959 Well Visit 65+ 2006 DTaP/Tdap/Td Vaccine (1 - Tdap) 10/11/2009 9, 10/25/1998 Pneumococcal vaccine 65+ (3 of 3 - PPSV23 or PCV20) 01/18/2018 01/18/2017, 10/25/2005 Depression Screening 01/06/2023 01/06/2022 Covid-19 Vaccine (3 - 2023-2 5 season) 2024 01/09/2021, 12/19/2020 Influenza Vaccine (#1) 2024 , 07/22/2018, 08/23/2015 Albumin Creatinine Ratio, Urine 12/22/2024 12/23/2023, 12/08/2022, 01/06/2022 Lipid Panel 12/22/2024 12/23/2023, 11/25, 09/30/2021 eGFR 01/11/2025 01/12/2024, 11/26, 12/08/2022 Dilated Eye Exam 03/31/2025 03/31/2024, 06/09/2022 Hemoglobin A1C 05/15/2025 11/15/2024, 06/26, 12/23/2023, Additional history exists Foot Exam 07/19/2025 07/19/2024, 11/25, 04/03/2021 Zoster Vaccine Completed 11/04/2020, 08/08/2020 Procedures Procedure Name Priority Date/Time Associated Diagnosis Comments POCT GLUCOSE Routine 11/15/2024 9:31 AM GRADES 9 THRU 12 VISITING TEACHER Type 2 diabetes mellitus with hyperglycemia, with long-term current use of insulin (HCC) POCT HEMOGLOBIN A1C Routine 11/15/2024 9 :31 AM GRADES 9 THRU 12 VISITING TEACHER Type 2 diabetes mellitus with hyperglycemia, with long-term current use of insulin (HCC) HM DIABETES EYE EXAM Routine 03/31/2024 8:45 AM CDT EGFR Routine 01/12/2024 10:16 AM CDT Type 2 diabetes mellitus with hyperglycemia, with long-term current use of insulin ([facility]/HCC) (HCC) ALBUMIN CREATININE RATIO, URINE Routine 12/23/2023 2:33 PM GRADES 9 THRU 12 VISITING TEACHER Hypertension associated with type 2 diabetes mellitus (HCC) LIPID PANEL Routine 12/23/2023 2:27 PM GRADES 9 THRU 12 VISITING TEACHER Mixed diabetic hyperlipidemia associated with type 2 diabetes mellitus (HCC) from Last 3 Months or Most Recently Relevant to Health Maintenance Results * (ABNORMAL) POCT hemoglobin A1c (11/15/2024 9:31 AM GRADES 9 THRU 12 VISITING TEACHER) Hemoglobin A1C, POC 6.7 4.0 - 5.6 % Blood 11/15/2024 9:31 AM GRADES 9 THRU 12 VISITING TEACHER us Shelley Hogan JAVA INTEGRATION DEVELOPER POINT OF CARE TEST ORDERA BLES Final Result * (ABNORMAL) POCT glucose (11/15/2024 9:31 AM GRADES 9 THRU 12 VISITING TEACHER) Glucose Blood, POC 203 mg/dL Blood 11/15/2024 9:31 AM GRADES 9 THRU 12 VISITING TEACHER us Shelley Hogan NP POINT OF CARE [...] 6 AM CDT 01/12/2024 6:01 PM CDT Horace Mullen MD LAB BLOOD ORDERABLES Final Resul t Performing Organization Address City/State/[facility] [place] Phone Number [facility] [id number] [place] [address] * Albumin Creatinine Ratio, Urine (12/23/2023 2:33 PM GRADES 9 THRU 12 VISITING TEACHER) Albumin Ur <12.0 mg/L [facility] Comment: Interpretive Data No reference range established. Current interpretive data was last revised 2019. Creatinine Ur 64.9 mg/dL [facility] Comment: Interpretive Data No reference range established. Current interpretive data was last revised 2019. Albumin Creatinine Ratio, Ur <18 1 - 29 mg/g [facility] Urine 12/23/2023 2:33 PM GRADES 9 THRU 12 VISITING TEACHER 12/23/2023 2:33 PM GRADES 9 THRU 12 VISITING TEACHER us Horace Mullen MD LAB URINE ORDERABLES Final Resul t [facility] [id number] Department [place] [address] * Lipid panel (12/23/2023 2:27 PM GRADES 9 THRU 12 VISITING TEACHER) Cholesterol 161 30 - 199 mg/dL [facility] [...] revised on 2018. HDL 64 >=40 mg/dL [facility] Comment: Interpretive Data Ages < [...] 3 [facility] Blood 12/23/2023 2:27 PM GRADES 9 THRU 12 VISITING TEACHER 12/23/2023 2:27 PM GRADES 9 THRU 12 VISITING TEACHER us Horace Mullen MD LAB BLOOD ORDERABLES Final Resul t [facility] [id number] [place] [address] from Last 3 Months or Most Recently Relevant to Health Maintenance Insurance [employer] MEDICARE GOLD A[employer] MEDICARE GOLD Care Teams Flight Operations Engineer Relationship Specialty Start Date End Date Gino Comer PA [address] [facility] [address] [facility] [address] [place] [address] PCP - General Physician Insurance Loss Adjuster 02/25/21
== END 2024-11-16 12:48 | disposition home or self-care (01) ==
LOC: CHSIMG 12:50
PROVIDERS: PCP Family Medicine; Visit Provider Family Medicine
DX: Z78.0 Asymptomatic menopausal state (principal); M85.89 Other specified disorders of bone density and structure, multiple sites; M81.0 Age-related osteoporosis without current pathological fracture
CPT/HCPCS: 77080

== ENCOUNTER 2025-03-23 09:14 | Outpatient (CLI) | payer MEDICARE, SELFPAY ==
--- OUTSIDE RECORDS SUMMARY | 2025-03-23 09:19 | XMS_ITS | Clinical Summary ---
Author Organization [facility] Physician Office Building [address] [place] [id number] Care Team Providers Care Tick Inspector Name Role Phone Chaya Dowd MD Primary Care Provider [phone] Allergies No known active allergies Medications metFORMIN [...] flash glucose scanning reader (FreeStyle Lian[place] 2 [place] [facility] 4 TIMES A [...] skin once a week 6 mL 3 5 02/06/20 26 Active Active Problems Problem Noted Date Diagnosed Date BMI 25.0-25.9,adult 12/08/2022 Assessment & Plan (12/08/2022 9:18 AM FILM COMPOSER): BMI is acceptable for this patient. Discussed healthy diet and importance of regular physical activity (20- 30min/day, 150min/wk). Hypertension associated with type 2 diabetes jayson litus 06/10/2022 Assessment & Plan (03/14/2025 9:35 AM CDT): Chronic problem. Well controlled on current irbesartan 75mg daily. Will update labs. Does not mychart. Verified phone #/address to contact re: results. Assessment & Plan (11/15/2024 10:04 AM FILM COMPOSER): Chronic problem. Well controlled on current irbesartan 75mg daily. Assessment & Plan (07/19/2024 12:02 PM CDT): Chronic problem. Well controlled on current irbesartan 75mg daily. Assessment & Plan (12/23/2023 9:40 AM FILM COMPOSER): Chronic, well controlled Continue irbesartan Update GFR and MA Assessment & Plan (06/22/2023 10:26 AM CDT): Chronic, well-controlled Continue current regimen with irbesartan Assessment & Plan (12/07/2022 2:36 PM FILM COMPOSER): Chronic problem. Well controlled on current irbesartan 150mg daily. No changes at this time. Will update labs today. Verified phone #/address to contact re: results. Assessment & Plan (06/11/2022 2:24 PM CDT): Controlled on current medications, no changes. Mixed diabetic hyperlipidemi a associated with type 2 diabetes mellitus 09/30/2021 Assessment & Plan (03/14/2025 9:40 AM CDT): Chronic problem. Currently taking Simvastatin 5 mg. Last lipid panel: 12/22/23 LDL=76, TI=521. Will update labs. Does not mychart. Verified phone #/address to contact re: results. Assessment & Plan (11/15/2024 10:04 AM FILM COMPOSER): Chronic problem, well controlled on current Simvastatin 10mg. Last lipid panel: 12/22/23 LDL=76, JE=469. Assessment & Plan (07/19/2024 12:01 PM CDT): Chronic problem, well controlled on current Simvastatin 10mg. Last lipid panel: 12/22/23 LDL=76, RV=492. Assessment & Plan (12/23/2023 9:39 AM FILM COMPOSER): Chronic, well controlled Continue statin therapy Update LP Assessment & Plan (06/22/2023 10:25 AM CDT): Chronic, well-controlled Continue statin therapy with simvastatin Assessment & Plan (12/07/2022 2:37 PM FILM COMPOSER): Chronic problem, well controlled on current simvastatin 10mg daily. Last lipid panel: 09/30/21 LDL=53, DR=244. Will update labs today. Verified phone #/address to contact re: results. Assessment & Plan (06/11/2022 2:24 PM CDT): Chronic problem. On statin therapy, no changes. Assessment & Plan (01/06/2022 2:50 PM CDT): Chronic, well controlled Low fat Low cholesterol diet Exercise Continue statin therapy Assessment & Plan (09/30/2021 4:18 PM FILM COMPOSER): LDL cholesterol goal under 80 Lipids checked today Continue simvastatin Type 2 diabetes mellitus wit h hyperglycemia, with long-term current use of insulin 04/03/2021 Assessment & Plan (03/14/2025 9:52 AM CDT): Chronic problem, well controlled on current regimen. No hypoglycemic events. A1c 6.8% today. No changes at this time. Current medications: Metformin 1000 mg twice daily Trulicity 3 mg weekly (PAP) Levemir 7 units at bedtime Novolog 6 units before lunch Will update labs. Does not mychart. Verified phone #/address to contact re: results. UTD on DM eye exam (03/31/24 NPDR wo DME OD, no DMR OS Dr Fischer ([facility]). Has an appt end of March with Dr Fischer. Will send letter to get copy of report at that time. Discussed with Shital Arredondo: Strive for regular [...] skin breakdown and infection. Assessment & Plan (11/15/2024 10:05 AM FILM COMPOSER): Chronic problem, well controlled on current regimen. No hypoglycemic events. A1c 6.7% today. Current medications: Metformin 1000 mg twice daily Trulicity 3 mg weekly (PAP) Levemir 7 units at bedtime Novolog 6 units before lunch UTD on labs. UTD on DM eye exam (03/31/24 NPDR wo DME OD, no DMR OS Dr Fischer ([facility]) Discussed with Shital Arredondo: Strive for [...] on labs. DM eye exam 09/2023 at [facility] in [place]. Scheduled again 09/2024. Discussed with [...] infection. Assessment & Plan (12/23/2023 9:39 AM FILM COMPOSER): Chronic, well controlled Continue current regimen. Switched from Levemir to Tresiba, because of formulary change Assessment & Plan (06/22/2023 10:25 AM CDT): Chronic, well-controlled Continue current insulin regimen with Levemir and Humalog, also metformin and Trulicity Prevention and treatment of hypoglycemia was also discussed Need for eye exam was explained Assessment & Plan (12/08/2022 9:36 AM FILM COMPOSER): Chronic problem, well controlled on current regimen. [...] BD Assessment & Plan (09/30/2021 4:15 PM FILM COMPOSER): Hba1c was Lab Results Component Value Date [...] (04/03/2021 4:37 PM CDT): Will try Ambien Encounters Date Type Department Care Team Description 03/15/2025 Results Follow-Up [facility] Diabetes and Endocr[facility]ology [address] [place] [phone] Shelley Hogan NP Lipid panel, Albumin Creatinine Ratio, Urine, Comprehensive metabolic panel, eGFR 03/14/2025 10:00 AM CDT Lab [facility] Outpatient Lab at [address] [phone] 03/14/2025 9:58 AM CDT - 03/14/2025 11:59 PM CDT Hospital Encounter [address] [address] Type 2 diabetes mellitus with hyperglycemia, with long-term current use of insulin (HCC); Mixed diabetic hyperlipidemia associated with type 2 diabetes mellitus (HCC); Hypertension associated with type 2 diabetes mellitus (HCC) Discharge Disposition: Discharge to home or self care 03/14/2025 9:30 AM CDT Office Visit [facility] [address] [place] [phone] Shelley Hogan NP Type 2 diabetes mellitus with hyperglycemia, with long-term current use of insulin (HCC) (Primary Dx); Hypertension associated with type 2 diabetes mellitus (HCC); Mixed diabetic hyperlipidemia associated with type 2 diabetes mellitus (HCC) from Last 3 Months Immunizations Immunization Administration Dates Next Due Influenza, Quad, Adjuvantated, [...] on file Legal Sex Female 11:43 PM FILM COMPOSER Gender Identity Not on file Sexual Orientation Not on file Obstetrics History Last Filed Vital Signs Vital Sign Reading Time Taken Comments Blood Pressure 132/84 03/14/2025 9:15 AM CDT Pulse 85 03/14/2025 9:15 AM CDT Temperature - - Respiratory Rate 14 03/14/2025 9:15 AM CDT Oxygen Saturation - - Inhaled Oxygen Concentration - - Weight 67.1 kg (148 lb) 03/14/2025 9:15 AM CDT Height 162.6 cm (5' 4.02) 03/14/2025 9:15 AM CD T Body Mass Index 25.39 03/14/2025 9:15 AM CDT Plan of Treatment Health Maintenance Due Date Last Done Comments Fall Risk Assessment 1940 Osteoporosis Screening-Bone Density Scan 1941 Hepatitis B Screening 1959 Well Visit 65+ 2006 DTaP/Tdap/Td Vaccine (1 - Tdap) 10/11/2009 9, 10/25/1998 Pneumococcal vaccine 65+ (3 of 3 - PCV20 or PCV21) 01/18/2022 01/18/2017, 10/25/2005 Depression Screening 01/06/2023 01/06/2022 Covid-19 Vaccine (3 - 2023-2 5 season) 2024 01/09/2021, 12/19/2020 Dilated Eye Exam 03/31/2025 03/31/2024, 06/09/2022 Influenza Vaccine (Season Ended) 2025 08/01/2020, 07/22/2018, 08/23/2015 Hemoglobin A1C 09/14/2025 03/14/2025, 10/26, 07/19/2024, Additional history exists Albumin Creatinine Ratio, Urine 03/14/2026 03/14/2025, 12/23/2023, 12/08/2022, Additional history exists Foot Exam 03/14/2026 03/14/2025, 06/26, 12/08/2022, Additional history exists Lipid Panel 03/14/2026 03/14/2025, 11/26, 12/08/2022, Additional history exists eGFR 03/14/2026 03/14/2025, 12/24, 12/23/2023, Additional history exists Zoster Vaccine Completed 11/04/2020, 08/08/2020 Procedures Procedure Name Priority Date/Time Associated Diagnosis Comments EGFR Routine 03/14/2025 9:58 AM CDT Type 2 diabetes mellitus with hyperglycemia, with long-term current use of insulin (HCC) Hypertension associated with type 2 diabetes mellitus (HCC) COMPREHENSIVE METABOLIC PANEL Routine 03/14/2025 9:58 AM CDT Type 2 diabetes mellitus with hyperglycemia, with long-term current use of insulin (HCC) Hypertension associated with type 2 diabetes mellitus (HCC) ALBUMIN CREATININE RATIO, URINE Routine 03/14/2025 9:58 AM CDT Type 2 diabetes mellitus with hyperglycemia, with long-term current use of insulin (HCC) LIPID PANEL Routine 03/14/2025 9:58 AM CDT Type 2 diabetes mellitus with hyperglycemia, with long-term current use of insulin (HCC) Mixed diabetic hyperlipidemia associated with type 2 diabetes mellitus (HCC) POCT HEMOGLOBIN A1C Routine 03/14/2025 9 :17 AM CDT Type 2 diabetes mellitus with hyperglycemia, with long-term current use of insulin ([facility]) POCT GLUCOSE Routine 03/14/2025 9:17 AM CDT Type 2 diabetes mellitus with hyperglycemia, with long-term current use of insulin ([facility]) DIABETES EYE EXAM Routine 03/31/2024 8:45 AM CDT from Last 3 Months or Most Recently Relevant to Health Maintenance Results * eGFR (03/14/2025 9:58 AM CDT) [facility] Signature eGFR 78 >=60 mL/min/1. 73 m2 Comment: Interpretive Data Reference Interval Normal >/= 90 mL/min/1.73m2 Mildly decreased* 60 - 89 mL/min/1.73m2 Mildly to moderately decreased 45 - 59 mL/min/1.73m2 Moderately to severely decreased 30 - 44 mL/min/1.73m2 Severely decreased 15 - 29 mL/min/1.73m2 Kidney Failure < 15 mL/min/1.73m2 *Relative to young adult level Estimated glomerular [...] interpretive data was last reviewed 2021. Blood 03/14/2025 9:58 AM CDT 03/14/2025 5:31 PM CDT Shelley Hogan STERILISATION TECHNICIAN LAB BLOOD ORDERABLES Bernice l Result Performing Organization Address [facility] de Phone Number [facility] [address] [place] [address] * Albumin Creatinine Ratio, Urine (03/14/2025 9:58 AM CDT) Albumin Ur <12.0 mg/L Comment: Interpretive Data No reference range established. Current interpretive data was last revised 2019. Creatinine Ur 101.0 mg/dL [facility] Comment: Interpretive Data No reference range established. Current interpretive data was last revised 2019. Albumin Creatinine Ratio, Ur <12 1 - 29 mg/g [facility] Urine 03/14/2025 9:58 AM CDT 03/14/2025 5:09 PM CDT us Shelley Hogan STERILISATION TECHNICIAN LAB URINE ORDERABLES Bernice l Result Performing Organization Address [facility] de Phone Number [facility] [address] [place] [address] * Lipid panel (03/14/2025 9:58 AM CDT) Cholesterol 149 30 - 199 mg/dL Comment: Interpretive Data Ages < or = 19 years Acceptable: <170 mg/dL Borderline high: 170-199 mg/dL High: >or= 200 mg/dL Ages > or = 20 years Desirable: <200 mg/dL Borderline high: 200-239 mg/dL High: >or= 240 mg/dL Literature References: 1. Expert Panel on Integrated Guidelines for Cardiovascular Health and Risk Reduction in Children and Adolescents. Pediatrics 2011;128:S213 2. NCEP Expert Panel. Circulation 2004;110:227 Current Interpretive Data was last revised on 2018. Triglycerides 113 <=149 mg/dL BISHOP Comment: Interpretive Data Ages < or = 9 years Acceptable: <75 mg/dL Borderline high: 75-99 mg/dL High: >or= 100 mg/dL Ages 10 to 20 years Acceptable: <90 mg/dL Borderline high: 90-129 mg/dL High: >or= 130 mg/dL Ages > or = 20 years Desirable: <150 mg/dL Borderline high: 150-199 mg/dL High: 200-499 mg/dL Very high: >or= 499 mg/dL Literature References: 1. Expert Panel on Integrated Guidelines for Cardiovascular Health and Risk Reduction in Children and Adolescents. Pediatrics 2011;128:S213 2. NCEP Expert Panel. Circulation 2004;110:227 Current Interpretive Data was last revised on 2018. HDL 54 >=40 mg/dL BISHOP Comment: Interpretive Data Ages < or = 19 years Acceptable: >45 mg/dL Borderline low: 40-45 mg/dL Low: <40 mg/dL Ages > or = 20 years Desirable: >or= 60 mg/dL Low: <40 mg/dL Literature References: 1. Expert Panel on Integrated Guidelines for Cardiovascular Health and Risk Reduction in Children and Adolescents. Pediatrics 2011;128:S213 2. NCEP Expert Panel. Circulation 2004;110:227 Current Interpretive Data was last revised on 2018. LDL, calculated 75 <=129 mg/dL BISHOP Comment: Interpretive Data Ages < or = 19 years Acceptable: <110 mg/dL Borderline high: 110-129 mg/dL High: >or= 130 mg/dL Ages > or = 20 years Optimal: <100 mg/dL Near optimal: 100-129 mg/dL Borderline high: 130-159 mg/dL High: >160 mg/dL Calculated using the Fransisco LDL-C estimating equation. This equation was implemented on 2024. Prior to this date LDL-C was estimated using the Friedewald equation. Literature References: 1. Expert Panel on Integrated Guidelines for Cardiovascular Health and Risk Reduction in Children and Adolescents. Pediatrics 2011;128:S213 2. NCEP Expert Panel. Circulation 2004;110:227 3. Fransisco Caldwell et al. ANIBAL Cardiol. 2020 February 22;5(5):540-548. doi: 10.1001/jamacardio.[email or web address] Current Interpretive Data was last revised on 2024. Non-HDL Cholesterol 95 mg/dL CERNER Comment: Interpretive Data Ages < or = 19 years Acceptable: <120 mg/dL Borderline high: 120-144 mg/dL High: >145 mg/dL Ages > or = 20 years When triglycerides are >200 mg/dL, Non-HDL cholesterol is a secondary target of therapy with treatment goals that are 30 mg/dL greater than the LDL cholesterol target. Literature References: 1. Expert Panel on Integrated Guidelines for Cardiovascular Health and Risk Reduction in Children and Adolescents. Pediatrics 2011;128:S213 2. NCEP Expert Panel. Circulation 2004;110:227 Current Interpretive Data was last revised on 2018. Chol/HDL ratio 3 [facility]ER Blood 03/14/2025 9:58 AM CDT 03/14/2025 5:09 PM CDT us Shelley Hogan STERILISATION TECHNICIAN LAB BLOOD ORDERABLES Bernice l Result [facility] [address] Department of Laboratories [place], [place] [id number] * Comprehensive metabolic panel (03/14/2025 9:58 AM CDT) Sodium 136 135 - 145 mmol/L Potassium, pl 4.8 3.3 - 4.9 mmol/L [facility] Chloride 98 97 - 110 mmol/L [facility] CO2 26 22 - 32 mmol/L [facility] Anion gap 12 2 - 15 mmol/L [facility] 18 6 - 25 mg/dL [facility] Creatinine 0.76 0.60 - 1.10 mg/dL [facility] Glucose 130 70 - 199 mg/dL [facility] Comment: Interpretive Data Fasting glucose >/= 126 mg/dl is diagnostic for diabetes. Fasting is defined as no caloric intake for at least 8 hours. Fasting glucose between 100 mg/dl to 125 mg/dl is diagnostic of prediabetes. In a patient with classic symptoms of hyperglycemia or hyperglycemic crisis, a random glucose >/= 200 mg/dl is diagnostic for diabetes. In the absence of unequivocal hyperglycemia, results should be confirmed by repeat testing. The classification and Diagnosis of Diabetes Diabetes Care 2021; 46: S19-S40. Current interpretive data was last revised 2022. Calcium 9.5 8.5 - 10.3 mg/dL [facility] CH Bilirubin, total 0.3 0.1 - 1.2 mg/dL [facility] CH Protein, pl 6.8 6.5 - 8.5 g/dL [facility] CH Albumin 4.2 3.5 - 5.0 g/dL [facility] CH Alk phos 57 40 - 130 Units/L [facility] ALT 16 7 - 45 Units/L [facility] AST 22 10 - 45 Units/L [facility] CH Blood 03/14/2025 9:58 AM CDT 03/14/2025 5:09 PM CDT us Shelley Hogan NP LAB BLOOD ORDERABLES Bernice l Result [facility] [address] Department [place] [address] * (ABNORMAL) POCT hemoglobin A1c (03/14/2025 9:17 AM CDT) Hemoglobin A1C, POC 6.8(A) 4.0 - 5.6 % Blood 03/14/2025 9:17 AM CDT us Shelley Hogan NP POINT OF CARE TEST ORDERA BLES Final Result * (ABNORMAL) POCT glucose (03/14/2025 9:17 AM CDT) Glucose Blood, POC 149 Normal Fasting 70 - 100, Random <200 mg/dL Blood 03/14/2025 9:17 AM CDT us Shelley Hogan NP POINT OF CARE TEST ORDERA BLES Final Result * (ABNORMAL) DIABETES EYE EXAM (03/31/2024 8:45 AM CDT) us Historical Provider HEALTH MAINTENANCE Edited Result - Final from Last 3 Months or Most Recently Relevant to Health Maintenance Insurance T MEDICARE [facility] TNA MEDICARE GOLD Care Teams Tick Inspector Relationship Specialty Start Date End Date Chaya Dowd MD [address] [id number] PCP - General Family Medicine 03/14/25
--- OUTSIDE RECORDS SUMMARY | 2025-03-23 09:19 | XMS_ITS | Referral Summary ---
Author Organization [facility] Physician Office Building [address] [place] [phone] Care Team Providers Care Wine Maker Name Role Phone Chaya Dowd MD Primary Care Provider [phone] Encounters Date Type Department Care Team Description 03/15/2025 Results Follow-Up [facility] Diabetes and Endocrinology [address] [place] [phone] Shelley Hogan NP Lipid panel, Albumin Creatinine Ratio, Urine, Comprehensive metabolic panel, eGFR 03/14/2025 9:58 AM CDT - 03/14/2025 11:59 PM CDT Hospital Encounter [address] [id number] Type 2 diabetes mellitus with hyperglycemia, with long-term current use of insulin (HCC); Mixed diabetic hyperlipidemia associated with type 2 diabetes mellitus (HCC); Hypertension associated with type 2 diabetes mellitus (HCC) Discharge Disposition: Discharge to home or self care 03/14/2025 10:00 AM CDT Lab [facility] Outpatient Lab at [address] [phone] 03/14/2025 9:30 AM CDT Office Visit [facility] Diabetes and Endocrinology [address] [place] [phone] Shelley Hogan NP Type 2 diabetes [...] flash glucose scanning reader ([employer] [place]) misc USED TO CHECK BG 4 TIMES [...] 12/08/2022 Assessment & Plan (12/08/2022 9:18 AM MANAGER HOME): BMI is acceptable for this patient. Discussed healthy diet and importance of regular physical activity (20- 30min/day, 150min/wk). Hypertension associated with type 2 diabetes jayson litus 06/10/2022 Assessment & Plan (03/14/2025 9:35 AM CDT): Chronic problem. Well controlled on current irbesartan 75mg daily. Will update labs. Does not mychart. Verified phone #/address to contact re: results. Assessment & Plan (11/15/2024 10:04 AM MANAGER HOME): Chronic problem. Well controlled on current irbesartan 75mg daily. Assessment & Plan (07/19/2024 12:02 PM CDT): Chronic problem. Well controlled on current irbesartan 75mg daily. Assessment & Plan (12/23/2023 9:40 AM MANAGER HOME): Chronic, well controlled Continue irbesartan Update GFR and MA Assessment & Plan (06/22/2023 10:26 AM CDT): Chronic, well-controlled Continue current regimen with irbesartan Assessment & Plan (12/07/2022 2:36 PM MANAGER HOME): Chronic problem. Well controlled on current irbesartan [...] 5 mg. Last lipid panel: 12/22/23 LDL=76, WS=568. Will update labs. Does not mychart. Verified phone #/address to contact re: results. Assessment & Plan (11/15/2024 10:04 AM MANAGER HOME): Chronic problem, well controlled on current Simvastatin 10mg. Last lipid panel: 12/22/23 LDL=76, KG=826. Assessment & Plan (07/19/2024 12:01 PM CDT): Chronic problem, well controlled on current Simvastatin 10mg. Last lipid panel: 12/22/23 LDL=76, II=343. Assessment & Plan (12/23/2023 9:39 AM MANAGER HOME): Chronic, well controlled Continue statin therapy Update LP Assessment & Plan (06/22/2023 10:25 AM CDT): Chronic, well-controlled Continue statin therapy with simvastatin Assessment & Plan (12/07/2022 2:37 PM MANAGER HOME): Chronic problem, well controlled on current simvastatin 10mg daily. Last lipid panel: 09/30/21 LDL=53, BA=875. Will update labs today. Verified phone #/address to contact re: results. Assessment & Plan (06/11/2022 2:24 PM CDT): Chronic problem. On statin therapy, no changes. Assessment & Plan (01/06/2022 2:50 PM CDT): Chronic, well controlled Low fat Low cholesterol diet Exercise Continue statin therapy Assessment & Plan (09/30/2021 4:18 PM MANAGER HOME): LDL cholesterol goal under 80 Lipids checked [...] DME OD, no DMR OS Dr Fischer ([facility]). Has an appt end of [...] infection. Assessment & Plan (11/15/2024 10:05 AM MANAGER HOME): Chronic problem, well controlled on current regimen. No hypoglycemic events. A1c 6.7% today. Current medications: Metformin 1000 mg twice daily Trulicity 3 mg weekly (PAP) Levemir 7 units at bedtime Novolog 6 units before lunch UTD on labs. UTD on DM eye exam (03/31/24 NPDR wo DME OD, no DMR OS Dr Fischer ([facility]) Discussed with Shital Arredondo: Strive for [...] on labs. DM eye exam 09/2023 at [facility] in [place]. Scheduled again 09/2024. Discussed [...] infection. Assessment & Plan (12/23/2023 9:39 AM MANAGER HOME): Chronic, well controlled Continue current regimen. Switched from Levemir to Tresiba, because of formulary change Assessment & Plan (06/22/2023 10:25 AM CDT): Chronic, well-controlled Continue current insulin regimen with Levemir and Humalog, also metformin and Trulicity Prevention and treatment of hypoglycemia was also discussed Need for eye exam was explained Assessment & Plan (12/08/2022 9:36 AM MANAGER HOME): Chronic problem, well controlled on current regimen. [...] BD Assessment & Plan (09/30/2021 4:15 PM MANAGER HOME): Hba1c was Lab Results Component Value Date [...] (04/03/2021 4:37 PM CDT): Will try Kristinaien Immunizations Immunization Administration Dates Next Due Influenza, [...] on file Legal Sex Female 11:43 PM MANAGER HOME Gender Identity Not on file Sexual Orientation [...] 162.6 cm (5' 4.02) 03/14/2025 9:15 AM C DT Body Mass Index 25.39 03/14/2025 9:15 AM CDT Plan of Treatment Not on file Procedures [...] with long-term current use of insulin ([facility]) LIPID PANEL Routine 03/14/2025 9:58 AM CDT Type 2 diabetes mellitus with hyperglycemia, with long-term current use of insulin ([facility]) Mixed diabetic hyperlipidemia associated with type 2 diabetes mellitus ([facility]) POCT HEMOGLOBIN A1C Routine 03/14/2025 9 :17 AM CDT Type 2 diabetes mellitus with hyperglycemia, with long-term current use of insulin ([facility]) POCT GLUCOSE Routine 03/14/2025 9:17 AM CDT Type 2 diabetes mellitus with hyperglycemia, with long-term current use of insulin ([facility]) DIABETES EYE EXAM Routine 03/31/2024 8:45 AM CDT from Last 3 Months or Most Recently Relevant to Health Maintenance Results * eGFR (03/14/2025 9:58 AM CDT) [facility] Signature eGFR 78 >=60 mL/min/1. 73 [...] CDT 03/14/2025 5:31 PM CDT Shelley Hogan SECURITY PROGRAM MANAGER LAB BLOOD ORDERABLES Bernice l Result Performing Organization Address [facility] de Phone Number BISHOP [phone] [place] [address] * Albumin Creatinine Ratio, Urine (03/14/2025 9:58 AM CDT) Albumin Ur <12.0 mg/L Comment: Interpretive Data No reference range established. Current interpretive data was last revised 2019. Creatinine Ur 101.0 mg/dL [facility] Comment: Interpretive Data No reference range established. Current interpretive data was last revised 2019. Albumin Creatinine Ratio, Ur <12 1 - 29 mg/g [facility] Urine 03/14/2025 9:58 AM CDT 03/14/2025 5:09 PM CDT Shelley Hogan SECURITY PROGRAM MANAGER LAB URINE ORDERABLES Bernice l Result Performing Organization Address [facility] Co de Phone Number [facility] [phone] [place] [address] * Lipid panel (03/14/2025 9:58 AM CDT) [...] mg/dL High: >160 mg/dL Calculated using the Moody LDL-C estimating equation. This equation was implemented on 2024. Prior to this date LDL-C was estimated using the Friedewald equation. Literature References: 1. Expert Panel on Integrated Guidelines for Cardiovascular Health and Risk Reduction in Children and Adolescents. Pediatrics 2011;128:S213 2. NCEP Expert Panel. Circulation 2004;110:227 3. Fransisco M et al. ANIBAL Cardiol. 2020 February 22;5(5):540-548. [...] Shelley Hogan NP LAB BLOOD ORDERABLES Bernice perales Result [facility] [address] Department of Laboratories [place], [place] [phone] * Comprehensive metabolic panel (03/14/2025 9:58 AM CDT) Sodium 136 135 - 145 mmol/L Potassium, pl 4.8 3.3 - 4.9 mmol/L [facility] Chloride 98 97 - 110 mmol/L [facility] CH CO2 26 22 - 32 mmol/L [facility] CH Anion gap 12 2 - 15 mmol/L [facility] CH BUN 18 6 - 25 mg/dL [facility] CH Creatinine 0.76 0.60 - 1.10 mg/dL [facility] Glucose 130 70 - 199 mg/dL [facility] Comment: Interpretive Data Fasting glucose >/= 126 [...] NP LAB BLOOD ORDERABLES Bernice l Result [facility] [address] Department of Laboratories [place] [phone] * (ABNORMAL) POCT hemoglobin A1c (03/14/2025 9:17 [...] TEST ORDERA BLES Final Result * (ABNORMAL) HM DIABETES EYE EXAM (03/31/2024 8:45 AM CDT) us Historical Provider HEALTH MAINTENANCE Edited Result - Final from Last 3 Months or Most Recently Relevant to Health Maintenance Insurance [employer] MEDICARE GOLD AETNA MEDICARE GOLD Care Teams Wine Maker Relationship Specialty Start Date End Date Chaya Dowd MD [address] [place] [address] PCP - General Family Medicine 03/14/25
== END 2025-03-23 09:15 | disposition home or self-care (01) ==
LOC: CHSLAB 09:16
PROVIDERS: PCP Family Medicine; Visit Provider Family Medicine
DX: M25.562 Pain in left knee (principal)
CPT/HCPCS: 73564